=== PATIENT | male | born 1990 | race Caucasian/White ===

== ENCOUNTER 2018-10-14 15:19 | Emergency (ER) | payer OTHER ==
[~2018-10-14] VITALS: Ht 180.3 cm; Wt 73.0 kg
[2018-10-14 15:39] VITALS: BP 132/74
--- NOTE | 2018-10-14 15:42 | NUR ---
PATIENT AMBULATED TO BED #3
[2018-10-14] MEDS ORDERED: KETOROLAC 30 MG/ML VIAL IM ONE (15:55)
--- NOTE | 2018-10-14 16:00 | NUR ---
PATIENT PRESENTS TO ED WITH THE CHIEF C/O RIGHT EAR PAIN X3 DAYS. NO SWELLING OR EAR DISCHARGE NOTED. PT REPORTS OF HAVING DRY COUGH FOR 3 DAYS. LUNGS CLEAR ON AUSCULTATION. DENIES N/V/D. SKIN IS PINK/WARM/DRY; AAOX4 WITH EVEN AND STEADY GAIT. LUNGS CLEAR BL; HR EVEN AND REGULAR; PT REPORTS OF FEVER THIS MORNING. TOOK TYLENOL. AFEBRILE AT THIS TIME. DENIES ANY CP, SOB, OR COUGH AT THIS TIME; PATIENT STATES PAIN OF 6/10 AT THIS TIME; VSS; PATIENT POSITIONED FOR COMFORT; HOB ELEVATED; BEDRAILS UP X2; BED DOWN. ER MD MADE AWARE OF PT STATUS.
--- NOTE | 2018-10-14 16:35 | NUR ---
Patient discharged with v/s stable. Written and verbal after care instructions given and explained. Patient alert, oriented and verbalized understanding of instructions. Ambulatory with steady gait. All questions addressed prior to discharge. ID band removed. Patient advised to follow up with PMD. Rx of amoxicillin,tylenol,motrin given. Patient educated on indication of medication including possible reaction and side effects. Opportunity to ask questions provided and answered.
== END 2018-10-14 16:35 | disposition home or self-care (01) ==
LOC: MED 15:19
DX: H66.93 Otitis media, unspecified, bilateral (principal); J02.8 Acute pharyngitis due to other specified organisms; B97.89 Other viral agents as the cause of diseases classified elsewhere
CPT/HCPCS: 96372; 99283; J1885